=== PATIENT | male | born 1945 ===

== ENCOUNTER 2025-06-05 10:31 | Outpatient (AMB) | payer BC, SELFPAY ==
--- OUTSIDE RECORDS SUMMARY | 2025-04-15 06:30 | XMS_ITS ---
Author Organization [facility] Address [address] [place] [address] Care Team Providers Care Sales Service Executive Name Role Phone Ericleandra Shaista Primary Care Provider Monique Swift Unavailable [phone] Allergies Allergen (clinical drug ingredient) Drug/Non Drug Allergy documented on EMR Reaction Allergy Type Onset Date Status seasonal allergies congestion, runny nose Drug Allergy Active Medications Medication SIG (Take, Route, Frequency, Duration) Notes Start Date End Date Status Fenofibrate 160 MG 1 tablet with a meal Orally Once a day 06/10/2016 Active Fish Oil Active Lisinopril 40 MG 1 tablet Orally Once a day 06/10/2016 Active Lovastatin 40 MG 1 tablet with a meal Orally Once a day 06/10/2016 Active Magnesium Oxide Acti ve CoQ10 Active D-Mannose Active amLODIPine Besylate 5 MG 1 tablet Orally Once a day Active Aspirin Adult Low Dose 81 MG 1 tablet Orally Once a day 06/10/2016 Active Azelastine HCl Activ e Claritin 10 MG 1 tablet Orally Once a day Not-Taking Extra Depth Orthopedic Shoes (1 Pair) with Customized Heat Molded Multidensity Innersoles (3 Pair) as directed Dx: NIDDM (E11.9), Hammertoe Foot Deformity (M20.41,M20.42), Preulcerative Skin Lesion(s) (L85.1) 06/10/2016 Not-Taking Prevacid Not-Taking Famotidine Not-Takin g Vitamin C Not-Taking Vitamin B50 Complex Active Triamcinolone & Emollient Active Vitamin D Active Citrucel Not-Taking Clobetasol & Clobetasol Emul Not-Taking PreserVision AREDS A ctive PriLOSEC Active Tamsulosin HCl Activ e Metoprolol Succinate Active Mucinex Active metFORMIN HCl 500 MG 1 tablet with meals Orally Twice a day 06/10/2016 Active Social History Tobacco Use: Social History Observation Description Date Details (start date - stop date) Never Smoker NA - NA Tobacco use other than smoking: Question Answer Notes Are you an other tobacco user? No Tobacco Control (Standard) Question Answer Notes Tobacco use: Nonsmoker Additional Findings: Tobacco non-user Current no nsmoker AUDIT-C (Standard) Question Answer Notes Did you have a drink contain ing alcohol in the past year? Yes How often did you have a dri nk containing alcohol in the past year? Declined to specify (0 point) How many drinks did you have on a typical day when you were drinking in the past year? Declined to specify (0 point) How often did you have six o r more drinks on one occasion in the past year? Declined to specify (0 point) Points 0 Interpretation Negative Encounters Encounter Location Date Provider Diagnosis [address] [address] 04/15/2025 Monique Moran Plan Of Treatment No Information Progress Notes * Buzz BAILON EDOB:[birth year] (80 yo M)Acc No.[id number]:04/15/2025 Progress Notes Patient: Buzz OLIVER Provider: Leandra Moran DPM :1945 A ge:79 Y S ex:Male Date:04/15/2025 Address:[address] [place] [id number] Pcp:Shaista Olivarez Subjective: * Chief Complaints: * * ROS: G eneral/Constitutional: Nausea d enies. V omiting d enies. H blanca Thirst d enies. L oss appetite d enies. C hills d enies. F atigue d enies.?Fever d enies. N ight Sweats d enies. U nexplained weight loss d enies. U nexplained weight gain d enies. H EENTM: Dentures a dmits. D izziness d enies. G lasses/contacts a dmits. R etinopathy d enies. B lurred/double vision d enies. T MJ?denies. D ischarge/drainage d enies. I mplants d enies. S ore throat d enies. D ental implants d enies. H veronica of hearing a dmits. D ifficulty chewing/swallowing/speaking d enies. N ose bleeds d enies. S ore mouth d enies. ? R espiratory: On Oxygen d enies. P neumonia/pleurisy d enies.?Bronchitis a dmits. E mphysema d enies. C oughing d enies. C ough blood?denies. S hortness of breath d enies. W heezing d enies. C ardiovascular: Pacemaker d enies. M PRODUCTION ENGINEER TRACK d enies. W PW d enies. C HF d enies. H eart attack d enies. S eptal defect d enies. R apid beat d enies. C hest pain d enies. A trial Fib. d enies. M urmur/Palpitations d enies. G astrointestinal: Hemorrhoids a dmits. S tomach/Abdominal pain a dmits. D ark blood stool d enies. I rritable bowel a dmits. C onstipation d enies. D iarrhea d enies. H ematology: Swelling d enies. C lots d enies. V aricose Veins d enies. B ruising d enies. B leeding problem d enies. G enitourinary: Blood urine d enies. F requent/Painfu/urination/bladder control d enies. K idney stones a dmits. I nfection (UTI) a dmits. N ephropathy d enies. s ex trans dis (STD) d enies. P rostate a dmits. M usculoskeletal: Hammertoes d enies. B unions d enies. B ack Pain a dmits. M uscle Cramps/ Resting d enies. M uscle cramps / walking d enies.?Generalized aches and pains d enies. W eakness d enies. I nteg.: [place] d enies. S cars d enies. C orns/calluses?denies. I ngrown nails a dmits. P ainful nails a dmits. O pen Sores d enies. R ashes d enies. N eurologic: Difficulty sleeping a dmits. B rain disorder d enies. N umbness d enies. B alance trouble a dmits. C onfusion d enies. F ainting/blackouts d enies. T ingling d enies. T remors d enies. * Medical History: A sthma, Chicken pox, Diabetes mellitus, Diverticulosis, High blood pressure, Measles, Mumps, Cholesterol, Arthritis, Back,Hip,and Knee pain, Cataracts, Covid-19, Macular degeneration, Numbness, Psoriasis/eczema, Sinusitis. * Surgical History: t onsillectomy , deviated septum repair 2001, colonectomy 02/22/2014, cataract surgery , Thyroid Surgery 10/13/2017. * Family History: M other: , diagnosed with Unspecified essential hypertension. F ather: , stroke, heart attack, diagnosed with Diabetic - NIDDM. D aughter(s): alive. S on(s): alive. Spouse: alive. S ister: stroke. 3 son(s) , 2 daughter(s) . . Pt is unsure of complete family HX. * Social History: T obacco Use: T obacco use other than smoking A re you an other tobacco user? N o Tobacco Control (Standard) T obacco use: N onsmoker A dditional Findings: Tobacco non-user C urrent nonsmoker D rugs/Alcohol: D rugs H ave you used drugs other than those for medical reasons in the past 12 months? N o M iscellaneous: C affeine: yes, 1-2 cups per day. Children: yes, 5. Exercise: yes, bike riding. Marital status: . Occupation: retired. D rug/Alcohol: A FINA-C (Standard) D id you have a drink containing alcohol in the past year? Y es H ow often did you have a drink containing alcohol in the past year? D eclined to specify (0 point) H ow many drinks did you have on a typical day when you were drinking in the past year? D eclined to specify (0 point) H ow often did you have six or more drinks on one occasion in the past year? D eclined to specify (0 point) P oints 0 I nterpretation N egative * Medications: T aking amLODIPine Besylate 5 MG Tablet 1 tablet Orally Once a day , Taking Aspirin Adult Low Dose 81 MG Tablet Delayed Release 1 tablet Orally Once a day , Taking Azelastine HCl , Taking CoQ10 , Taking D-Mannose , Taking Fenofibrate 160 MG Tablet 1 tablet with a meal Orally Once a day , Taking Fish Oil , Taking Lisinopril 40 MG Tablet 1 tablet Orally Once a day , Taking Lovastatin 40 MG Tablet 1 tablet with a meal Orally Once a day , Taking Magnesium Oxide , Taking metFORMIN HCl 500 MG Tablet 1 tablet with meals Orally Twice a day , Taking Metoprolol Succinate , Taking Mucinex , Taking PreserVision AREDS , Taking PriLOSEC , Taking Tamsulosin HCl , Taking Vitamin B50 Complex , Taking Triamcinolone & Emollient , Taking Vitamin D , Not-Taking/PRN Citrucel , Not-Taking/PRN Clobetasol & Clobetasol Emul , Not-Taking/PRN Famotidine , Not-Taking/PRN Vitamin C , Not-Taking/PRN Claritin 10 MG Tablet 1 tablet Orally Once a day , Not-Taking/PRN Extra Depth Orthopedic Shoes (1 Pair) with Customized Heat Molded Multidensity Innersoles (3 Pair) as directed Dx: NIDDM (E11.9), Hammertoe Foot Deformity (M20.41,M20.42), Preulcerative Skin Lesion(s) (L85.1) , Not-Taking/PRN Prevacid * Allergies: S easonal Allergies: Congestion, Runny Nose. Objective: * Vitals: Assessment: Plan: * Treatment: * Images: * The named appointment provid er may or may not be the originator of this progress note, and it is not deemed complete until electronically signed by the appointment provider. Sign off status: Pending * Provider: Leandra Moran DPM Date: 0 04/15/2025 Generated for Abraham bullock/Willie/Jigar on: 06/05/2025 11:30 AM EDT
--- NOTE | 2025-06-05 10:44 | A.OFFVIS_ITS ---
Intake Visit Reasons: 6 weeks follow up Allergies No Known Allergies Allergy (Verified 06/04/25 19:11) Medication List - Last Reconciled 06/05/25 by Padma Dias MD amlodipine 5 mg PO DAILY aspirin 81 mg PO DAILY azelastine 2 sprays intranasal BID clobetasol 0.05% 1 appl topical BID coenzyme Q10 100 mg PO DAILY fenofibrate 160 mg PO DAILY furosemide 20 mg PO DAILY gabapentin 300 mg PO BEDTIME lisinopril 40 mg PO DAILY loratadine (Claritin) 10 mg PO DAILY lovastatin 40 mg PO DAILY magnesium oxide 400 mg PO BID PRN metformin 500 mg PO BID metoprolol succinate ER 50 mg PO DAILY omeprazole magnesium (Prilosec OTC) 20 mg PO DAILY tamsulosin 0.4 mg PO DAILY vitamin B complex 1 tab PO DAILY HPI Comments Details: This is a 79 yr man with Type 2 DM , with pain in his toes intermittently since Dec 2024. When it flares up , it affects his walking. Some days, he is in no pain. Recent NCV at [facility] in February 2025 has shown peripheral neuropathy. Report is not available. He also complains of more significant right thigh pain which is more constant? and affects his sleep . He has been able to asleep in the bed with a new mattress. He has been able to manage his pain without the gabapentin and only took 1 medicine because he was concerned about possible side effects. He has had mild tremors in his hands intermittently for 8 yrs. It does not cause any functional impairment. Tremor was better after coming off Escitalopram, which may have made it worse. He also has some absentmindedness and occasional trouble recalling names immediately. ? In the past he had occasional rare sharp pains and some dull ache at times in his legs and feet. Some numbness right thigh, only in morning. No local tenderness. Minor pain in the thigh muscles for a few seconds. A few rare instances of a few seconds of sharp pain in right big toe. Strength is fine. H/O diabetes mellitus, hypercholesterolemia, and hypertension with symptoms of meralgia paresthetica which have improved overall. He also has a mild distal sensory peripheral neuropathy from diabetes but is not symptomatic from it. Sugar is under control. 05/01/25 MRI LS spine shows diffuse degenerative disc disease in the lumbar spine with moderate to severe spinal stenosis at L2-3 and moderate stenosis at L3-4 and bilateral foraminal stenosis at L2-3. [facility] Medical History (Updated 06/05/25 @ 11:14 by Padma Dias MD) Macular degeneration GERD (gastroesophageal reflux disease) Hypercholesterolemia Hypertension Lumbar degenerative disc disease Meralgia paraesthetica Peripheral neuropathy Diabetes mellitus Surgical History (Updated 06/04/25 @ 19:08 by Isabel Giron MA) History of partial colectomy Social History (Updated 06/04/25 @ 19:09 by Isabel Giron MA) Patient Tobacco Use Status: Never used Tobacco Review of Systems Const Details: Sleep:? Difficulty getting to sleepdenies.? Difficulty maintaining sleepadmits.? Urge to move legsdenies.? Teeth grindingdenies.? Shouting or Kicking during sleepad mits.? Abnormal behavior during sleepdenies.? Excessive sleepdenies.? Snoring denies.? Daytime sleepinessdenies. ???General/Constitutional:? Change in appetitedenies.? Chillsdenies.? Fatiguedenies.? Feverdenies.? Weight gaindenies.? Weight lossdenies. ???Ophthalmologic:? Blurred visionadmits.? Diminished visual acuitydenies. ???ENT:? Stuffinessdenies.? Decreased hearingadmits.? Dry mouthdenies.? Ear paindenies.? Nosebleeddenies.? Ringing in the earsadmits.? Sinus paindenies.? Sore throat denies.? Swollen glandsdenies. ???Endocrine:? Cold intolerancedenies.? Excessive thirstdenies.? Frequent urinationdenies.? Heat intolerancedenies. ???Respiratory:? Shortness of breathdenies.? Chest paindenies.? Coughdenies. ???Breast:? Breast lumpdenies.? Nipple dischargedenies. ???Cardiovascular:? Chest pain at restdenies.? Chest pain with exertiondenies.? Claudicationdenies .? Dizzinessdenies.? Fluid accumulation in the legsdenies.? Irregular heartbeat denies.? Palpitationsdenies. ???Gastrointestinal:? Abdominal paindenies.? Constipationadmits.? Diarrheadenies.? Difficulty swallowingdenies.? Heartburndenies.? Nauseaadmits.? Rectal bleedingdenies. ???Hematology:? Easy bruisingdenies.? Prolonged bleedingdenies. ???Genitourinary:? Frequent urinationadmits.? Urgencydenies.? Incontinencedenies.? Erectile Dysfunctiondenies. ???Musculoskeletal:? Neck paindenies.? Back painadmits.? Muscle achesdenies.? Painful jointsdenies.? Sciaticadenies.? Weaknessdenies. ???Podiatric:? Difficulty walkingdenies.? Foot numbnessdenies. ???Neurologic:? Difficulty swallowingdenies.? Balance difficultydenies.? Coordinationnormal.? Difficulty speakingdenies.? Dizzinessdenies.? Faintingdenies.? Gait abnormality denies.? Headachedenies.? Loss of strengthdenies.? Loss of use of extremity denies.? Low back paindenies.? Memory lossadmits.? Seizuresdenies.? Ticsdenies.? Tingling/Numbnessadmits.? Transient loss of visiondenies.? Tremordenies. ???Psychiatric:? Anxietyadmits.? Auditory/visual hallucinationsdenies.? Delusionsdenies.? Depressed moodadmits.? Stressorsadmits.? Substance abusedenies.? Suicidal thoughtsdenies. Physical Exam Neuro Other: Mini Mental Status Exam: Level of Consciousness:??Alert.?Orientation:??Knows correct year, month, date, day and season,?Knows correct city, county and state. Knows correct location and floor.?Registration:??Able to register 3 objects.?Attention:??Serial 7's performed accurately.?Recall:??Able to recall 3 out of 3 objects.?Language:??Normal spontaneous speech, fluency, repetition,naming, comprehension, reading and writing.?Total Score:??30/30.? Neurological: Abnormal neurological findings:??Minimal left hand and finger tremor at rest. Absent ankle reflexes. Mild blunting of pin prick sensation in the feet distal to mid tarsal level.?.?Mental Status:??alert and oriented X 3,?Normal attention, orientation, memory and affect.?Cranial Nerves:??Pupils are equal, round and reactive to light. Fundoscopy shows normal disc bilaterally. External occular muscles are intact. Visual elizalde are full, no ptosis. Face is symmetrical, no facial weakness or droop. Facial sensations are normal. Tongue protrudes in midline. Palate elevates symmetrically. Shoulder shrugging is normal..?Motor Examination:??Normal muscle tone, bulk and strength,?No atrophy or fasciculations,?No drift of the extended upper extremities,?Deep tendon reflexes are 1+?,?Plantars are flexor?.?Straight Leg Raising:??90 degrees.?Sensory Exam:??Normal light touch, temperature, pinprick, vibration and joint-position sensations?,?Rhomberg sign is absent.?Coordination:??no ataxia,?no titubation,?[id number], jwee-rygb-dely test and rapid alternating movements were normal.?Gait Exam:??Within normal limits.?Cerebellar Signs:??[id number]-[id number] and ywli-qy-epxh is normal,?no dysdiadochokinesia?.?Extrapyramidal System:??No tremor, rigidity with normal facial expressions,?No bradykinesia, no bradyphrenia. Normal arm swing and posture. No propulsion or retropulsion.?Speech:??Normal,?no dysphasia or dysarthria..? General Examination: GENERAL APPEARANCE:??normal,?in no acute distress.?HEART:??S1, S2 normal,?no murmurs.?LUNGS:??clear anteriorly and posteriorly.?MUSCULOSKELETAL:??normal.?EXTREMITIES:??no edema.?PSYCH:??alert, oriented,?cognitive function intact,?cooperative with exam.? 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 Will stay off Gabapentin for now. B complex. Does not need any meds for his tremor yet. No surgical intervention unless pain gets a lot worse. Coding Level of Care Code Est Pt Level 4 (36930) Diagnoses Peripheral neuropathy G62.9 Meralgia paraesthetica G57.10 Spinal stenosis of lumbar region at multiple levels M48.061 Tremor R25.1
--- OUTSIDE RECORDS SUMMARY | 2025-06-05 11:30 | XMS_ITS | Patient Health Record ---
Author Organization [employer] [facility] Address [address] [place] [address] Care Team Providers Care Sourcing Assistant Name Role Phone DREW BARRETT Primary Care Provider [phone] HarlangenAlli bennett Unavailable [phone] Allergies No Known Allergies Results Component Value Reference Range Notes [id number] Reviewed date:04/06/2025 12:10:49 PM Interpretation: Performing Lab:[facility], [address] [place] [address], Phone - [phone], Director - Jodry Notes/Report: TSH 1.840 0.450-4.500 uIU/mL Hemoglobin [id number] Reviewed date:04/06/2025 12:12:45 PM Interpretation: Performing Lab:[facility], [address] [place] [address], Phone - [phone], Director - MDStephaniedry Notes/Report: Hemoglobin A1c 5.3 4.8-5.6 % . Prediabetes: 5.7 - 6.4 Diabetes: >6.4 Glycemic control for adults with diabetes: <7.0 Albumin/Creatinine Ratio,Uri [id number] Reviewed date:04/06/2025 12:12:58 PM Interpretation: Performing Lab:[facility], [address] [place] [address], Phone - [phone], Director - MDJodry Notes/Report: Creatinine, Urine 31.9 Not Estab. mg/dL Albumin, Urine 46.1 Not Estab. ug/mL Alb/Creat Ratio 145 0-29 mg/g creat Normal: 0 - 29 Moderately increased: 30 - 300 Severely increased: >300 Lipid [id number] Reviewed date:04/06/2025 12:13:07 PM Interpretation: Performing Lab:[facility], [address] [facility], Phone - [phone], Director - MDJodry Notes/Report: Cholesterol, Total 118 100-199 mg/dL Triglycerides 92 0-149 mg/dL HDL Cholesterol 46 >39 mg/dL VLDL Cholesterol Finesse 18 5-40 mg/dL LDL Chol Calc (NIH) 54 0-99 mg/dL Comp. Metabolic Panel (14)-3 Reviewed date:04/06/2025 12:13:13 PM Interpretation: Performing Lab:[facility], [address] [facility], Phone - [phone], Director - MDTabathay Notes/Report: Glucose 86 70-99 mg/dL BUN 22 8-27 mg/dL Creatinine 1.35 0.76-1.27 mg/dL eGFR 53 >59 mL/min/1.73 BUN/Creatinine Ratio 16 10-24 Sodium 141 134-144 mmol/L Potassium 4.3 3.5-5.2 mmol/L Chloride 101 96-106 mmol/L Carbon Dioxide, Total 23 20-29 mmol/L Calcium 9.7 8.6-10.2 mg/dL Protein, Total 7.1 6.0-8.5 g/dL Albumin 4.4 3.8-4.8 g/dL Globulin, Total 2.7 1.5-4.5 g/dL Bilirubin, Total 0.6 0.0-1.2 mg/dL Alkaline Phosphatase 75 44-121 IU/L AST (SGOT) 29 0-40 IU/L ALT (SGPT) 16 0-44 IU/L Comp. Metabolic Panel (14)- Reviewed date:03/15/2025 03:27:10 PM Interpretation: Performing Lab:[facility], [address] [facility], Phone - [phone], Director - MDJodry Notes/Report: Clinical Information:SRC: Glucose 87 70-99 mg/dL BUN 20 8-27 mg/dL Creatinine 1.10 0.76-1.27 mg/dL eGFR 68 >59 mL/min/1.73 BUN/Creatinine Ratio 18 10-24 Sodium 140 134-144 mmol/L Potassium 4.3 3.5-5.2 mmol/L Chloride 102 96-106 mmol/L Carbon Dioxide, Total 24 20-29 mmol/L Calcium 9.4 8.6-10.2 mg/dL Protein, Total 6.7 6.0-8.5 g/dL Albumin 4.3 3.8-4.8 g/dL Globulin, Total 2.4 1.5-4.5 g/dL Bilirubin, Total 0.6 0.0-1.2 mg/dL Alkaline Phosphatase 64 44-121 IU/L AST (SGOT) 23 0-40 IU/L ALT (SGPT) 14 0-44 IU/L Hemoglobin [id number] Reviewed date:03/15/2025 03:27:26 PM Interpretation: Performing Lab:[facility], [address] [place] [address], Phone - [phone], Director - MDStephaniedry Notes/Report: Clinical Information:SRC: Hemoglobin A1c 5.4 4.8-5.6 % . Prediabetes: 5.7 - 6.4 Diabetes: >6.4 Glycemic control for adults with diabetes: <7.0 Albumin/Creatinine Ratio,Uri [id number] Reviewed date:03/15/2025 03:26:26 PM Interpretation: Performing Lab:[facility], [address] [place] [address], Phone - [phone], Director - Isi Notes/Report: Clinical Information:SRC: Creatinine, Urine 65.5 Not Estab. mg/dL Albumin, Urine 41.7 Not Estab. ug/mL Alb/Creat Ratio 64 0-29 mg/g creat Normal: 0 - 29 Moderately increased: 30 - 300 Severely increased: >300 Lipid Panel-[id number] Reviewed date:03/15/2025 03:27:49 PM Interpretation: Performing Lab:[facility], [address] [place] [address], Phone - [phone], Director - MDTabathay Notes/Report: Clinical Information:SRC: Cholesterol, Total 118 100-199 mg/dL Triglycerides 101 0-149 mg/dL HDL Cholesterol 43 >39 mg/dL VLDL Cholesterol Finesse 19 5-40 mg/dL LDL Chol Calc (NIH) 56 0-99 mg/dL Reason For Referral Reason please evaluate and treat- DR. Saad [facility] Pod[facility] Please evaluate and treat Diagnosis 1 Tinea unguium (B35.1 ) Referral Organization [facility] Referring Provider First Name Alli Referring Provider Last Name Viji Referred Provider Specialty Podiatry General Notes Please call the eliceo ent to schedule the 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 Referral Priority Urgent Reason neuropathy please evaluate and treat Diagnosis 1 Neuropathy (G62.9) Referral Organization [facility] Referring Provider First Name Isissmita Referring Provider Last Name Juan M Referred Provider Specialty Neurology General Notes Referral was faxed [facility]. Please contact patient for scheduling. , Claudia Yepezida 04/18/2025 04:56:13 PM > Referral Priority Routine Medications Medication SIG (Take, Route, Frequency, Duration) Notes Start Date End Date Status Tamsulosin HCl 0.4 MG 1 capsule Orally Once a day Active Triamcinolone Acetonide 0.025 % 1 application Externally Once a day as needed Active Fenofibrate 160 MG TAKE 1 TABLET DAILY; Duration: 90 Active Lovastatin 40 MG TAKE 1 TABLET DAILY WITH THE EVENING MEAL; Duration: 90 Active Azelastine HCl 0.1 % 2 puffs (1 spray in each nostril) Nasally Twice a day; Duration: 90 days Active Lisinopril 40 MG TAKE 1 TABLET DAILY; Duration: 90 Active D-Mannose 3 daily Active FreeStyle Lite w/Device as directed once a day; Duration: 30 days 03/09/2023 Not-Taking Clobetasol Propionate 0.05 % 1 application Externally Twice a day Active metFORMIN HCl 500 MG TAKE 1 TABLET TWICE A DAY WITH MEALS; Duration: 90 Active Metamucil 1 tsp daily Active FreeStyle Lancets - 1 lancet once a day; Duration: 90 days 03/09/2023 Not-Taking Colace 100 MG 1 capsule as needed Orally Once a day Active FreeStyle Lite Test - 1 strip In Vitro once a day; Duration: 90 days 03/09/2023 Not-Taking Magnesium Oxide 400 MG 2 tablets Orally daily Active Flonase 1 spray each nostril daily Active Furosemide 20 MG 1 tablet Orally Once a day; Duration: 30 days 03/20/2025 Active Lactulose 10 GM/15ML 15 mL as needed Orally Once a day; Duration: 30 days 11/17/2023 Not-Taking Mucinex 600 MG 1 tablet as needed Orally every 12 hrs prn Active Lactulose 20 GM 1 packet as needed Orally Once a day; Duration: 30 days 11/15/2023 Not-Taking Linzess 145 MCG 1 capsule at least 30 minutes before the first meal of the day on an empty stomach Orally Once a day; Duration: 30 days 09/09/2023 Not-Taking CoQ10 200 MG 1 capsule with a meal Orally Once a day Active Vitamin B50 Complex - as directed Orally 1 tablet daily Active Lactulose 20 GM 1 packet as needed Orally Once a day; Duration: 30 days 09/12/2023 Not-Taking Vitamin D3 50 MCG (2000 UT) 1 capsule Orally Once a day Active PriLOSEC OTC 20 MG 1 tablet 30 minutes before morning meal Orally Once a day as needed Active Aspirin 81 MG 1 tablet Orally Once a day Active Fish Oil 3,000 mg twice a day Active amLODIPine Besylate 5 MG 1 tablet Orally Once a day Active PreserVision AREDS 2 - as directed Orally 1 capsule twice a day Active Metoprolol Succinate ER 50 MG 1 tablet Orally Once a day Active Immunizations Vaccine Route Administration Date Status Comme nts COVID Unknown 01/01/2021 Administered Pfizer COVID Unknown 01/26/2021 Administered Pfizer COVID Unknown 09/01/2021 Administered Pfizer-boost er COVID-19 Pfizer Unknown 09/01/2022 Administered Fluzone High Dose 97044 IM Intramuscular 09/12/2024 Administered Influenza, high dose seasonal Unknown 09/01/2021 Administered Social History Tobacco Use: Social History Observation Description Date Details (start date - stop date) Never Smoker NA - NA Tobacco Use/Smoking Question Answer Notes Are you a nonsmoker Alcohol Screen (Audit-C) Question Answer Notes Did you have a drink contain ing alcohol in the past year? Yes How often did you have a dri nk containing alcohol in the past year? Monthly or less (1 point) How many drinks did you have on a typical day when you were drinking in the past year? 1 or 2 drinks (0 point) How often did you have 6 or more drinks on one occasion in the past year? 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.21) Active confirmed Problem Disorder due to type 2 diabetes mellitus (998144962) Type 2 diabetes mellitus with unspecified complications (E11.8) Active confirmed Problem Obesity due to excess calories (747612796) Other obesity due to excess calories (E66.09) Active confirmed Problem Mixed hyperlipidemia (548956692) Mixed hyperlipidemia (E78.2) Active confirmed Problem Essential tremor (729629697) Essential tremor (G25.0) Active confirmed Problem Intermittent claudication of bilateral lower limbs co-occurrent and due to atherosclerosis (92522379645535757 ) Atherosclerosis of [place] arteries of extremities with intermittent claudication, bilateral legs (I70.213) Active confirmed Problem Peripheral venous insufficiency (82810079) Venous insufficiency (chronic) (peripheral) (I87.2) Active confirmed Problem Seasonal allergic rhinitis (609390243) Other seasonal allergic rhinitis (J30.2) Active confirmed Problem Gastro-esophageal reflux disease without esophagitis (871153568) Gastro-esophageal reflux disease without esophagitis (K21.9) Active confirmed Problem Constipation (54968754) Constipation, unspecified (K59.00) Active confirmed Problem Essential hypertension (42680114) Essential (primary) hypertension (I10) Active confirmed Problem Mononeuropathy of lower limb (089911326) Unspecified mononeuropathy of bilateral lower limbs (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) Active confirmed Problem Lower urinary tract symptoms due to benign prostatic hypertrophy (24782825972865) Benign prostatic hyperplasia with lower urinary tract symptoms (N40.1) Active confirmed Problem Neuropathy (376039245) Neuropathy (G62.9) Active confirmed Vital Signs Heart Rate 51 /min 03/20/2025 Temperature 97.7 degrees Fahrenheit 03/20/2025 Oximetry 99 % 03/20/2025 Blood pressure diastolic 78 mm Hg 03/20/2025 Height 68 in 03/20/2025 Blood pressure systolic 126 mm Hg 03/20/2025 Weight 215 lbs 03/20/2025 BMI 32.69 kg/m2 03/20/2025 Encounters Encounter Location Date Provider Diagnosis [facility] [address] [address] 09/12/2024 [facility] Encounter for genera l adult medical examination without abnormal findings Z00.00 ; Atherosclerosis of [place] arteries of extremities with intermittent claudication, bilateral legs I70.213 ; Diabetes mellitus due to underlying condition with diabetic nephropathy E08.21 ; Essential (primary) hypertension I10 ; Mixed hyperlipidemia E78.2 ; Benign prostatic hyperplasia with lower urinary tract symptoms N40.1 and Encounter for immunization Z23 [address] [place] [address] 02/05/2025 Ghadeer Mazloum Tinea unguium B35.1 ; Unspecified mononeuropathy of bilateral lower limbs G57.93 and Type 2 diabetes mellitus with unspecified complications E11.[address] [place] [address] 03/20/2025 RUSSELL GU Essential (primary) hypertension I10 ; Diabetes mellitus due to underlying condition with diabetic nephropathy E08.21 ; Mixed hyperlipidemia E78.2 ; Venous insufficiency (chronic) (peripheral) I87.2 ; Other obesity due to excess calories E66.09 and Dietary counseling and surveillance Z71.[address] [place] [address] 06/14/[address] [place] [address] 07/16/[address] [place] [address] 07/19/[address] [place] [address] 07/31/[address] [place] [address] 02/08/[address] [place] [address] 02/14/2025 Ghadeer Mazloum Unspecified mononeuropathy of bilateral lower limbs G57.[address] [place] [address] 06/03/2025 RUSSELL GUL [facility] [address] [facility] [address] [facility] [place] [place] [address] 06/21/2024 R[facility]SELL GUL [facility] [address] [facility] [address] [facility] [place] [address] 06/21/2024 RUSSELL L [facility] [address] [facility] [address] [facility] [place] [address] 06/21/2024 [facility] [address] [facility] [address] [place] [address] 06/21/2024 RUSSELL GUL [facility] [address] [facility] [address] [facility] [place] [place] [address] 07/20/2024 [facility] [address] [facility] [address] [facility] [place] [address] 12/24/2024 [facility] [address] [facility] [address] [facility] [place] [address] 02/12/2025 [facility] [address] [facility] [address] [facility] [place] [place] [address] 02/12/2025 [facility] [address] [facility] [address] [facility] [place] [address] 02/14/2025 [facility] [address] [facility] [address] [facility] [place] [address] 03/04/2025 [facility] [address] [facility] [address] [facility] [place] [address] 03/20/2025 [facility] GUL [facility] [address] [facility] [address] [facility] [place] [address] 03/20/2025 [facility] [address] [facility] [address] [facility] [place] [address] 04/02/2025 [facility] [address] [facility] [address] [facility] [place] [address] 04/09/2025 [facility] [address] [facility] [address] [place] [address] 04/09/2025 R[facility] [address] [facility] [address] [place] [address] 04/11/2025 Alli Hallman [facility] [address] [facility] [address] [place] [address] 04/15/2025 Alli Hallman Assessments Encounter Date Diagnosis (ICD Code) Assessment Notes Treatment Notes Treatment Clinical Notes Section Notes 02/05/2025 Unspecified mononeuropathy of bilateral lower limbs (ICD-10 - G57.93) Mr. Decker is a 79 year old gentleman with DM type II, hypertension, hyperlipidemia, seasonal allergies and BPH here for bilateral foot pain. Plan as follows: Foot pain BL: - States that it is chronic, he admits to history of neuropathy though this pain is different. Diabetic foot exam is unremarkable, no ulcers/lesions, pedal pulse is intact BL, good circulation, toes are warm to touch. However, in his past medical history he has atherosclerosis with intermittent claudication, he is unaware of the diagnosis and he takes ASA 81mg daily. I will refer patient to Vascular for NATHALY testing, will also get EMG study to r/o neuropathy. Tinea Unguium: - Referred patient to labor contractor. T2DM: - Recent a1c of 5.3 it has improved. Continue on the same regimen. I have rendered the services for this patient under direct supervision of Dr. Barrett, who did not see the patient but was available upon request 02/14/2025 Unspecified mononeuropathy of bilateral lower limbs (ICD-10 - G57.93) 03/20/2025 Diabetes mellitus due to underlying condition with diabetic nephropathy (ICD-10 - E08.21) Buzz is 79 years old gentleman with DM type II with diabetic nephropathy, hypertension, hyperlipidemia, venous insufficiency, obesity, BPH is here today for follow-up. Plan is as follows DM type II with nephropathy. His last A1c was 5.4 which is within reasonable limits. Continue on metformin 500 mg 1 tablet twice a day. He is on lisinopril and lovastatin. He has seen [facility] erp developer in the past 1 year. Foot care discussed with the patient. Hypertension/hyper lipidemia. The pressure well controlled on lisinopril 40 mg 1 tablet daily, , metoprolol ER 50 mg 1 tablet daily and amlodipine 5 mg daily. Continue lovastatin 40 mg and he is also on fenofibrate 160 mg 1 tablet daily. Venous insufficiency. he has ultrasound done of bilateral lower extremity which was positive for venous insufficiency. Avoid salt. He cannot use compression stockings because of the rash. Started on Lasix 20 mg 1 tablet daily for 7 days and if there is no improvement he can continue for another 7 days and check basic panel and after that he can take Lasix 20 mg 2 times a week. BPH. Continue Flomax 0.4 mg daily Acid reflux. Continue Prilosec 20 mg 1 tablet daily Bilateral rash on the feet. Currently on clobetasol 0.05% cream and he follows up with dermatology. obesity. Dietary restrictions discussed and advised to lose on average 6 pounds a month. Encouraged physical activity Screening blood work before next appointment. 02/05/2025 Tinea unguium (ICD-10 - B35.1) Mr. Decker is a 79 year old gentleman with DM type II, hypertension, hyperlipidemia, seasonal allergies and BPH here for bilateral foot pain. Plan as follows: Foot pain BL: - States that it is chronic, he admits to history of neuropathy though this pain is different. Diabetic foot exam is unremarkable, no ulcers/lesions, pedal pulse is intact BL, good circulation, toes are warm to touch. However, in his past medical history he has atherosclerosis with intermittent claudication, he is unaware of the diagnosis and he takes ASA 81mg daily. I will refer patient to Vascular for NATHALY testing, will also get EMG study to r/o neuropathy. Tinea Unguium: - Referred patient to labor contractor. T2DM: - Recent a1c of 5.3 it has improved. Continue on the same regimen. I have rendered the services for this patient under direct supervision of Dr. Barrett, who did not see the patient but was available upon request 03/20/2025 Essential (primary) hypertension (ICD-10 - I10) Buzz is 79 years old gentleman with DM type II with diabetic nephropathy, hypertension, hyperlipidemia, venous insufficiency, obesity, BPH is here today for follow-up. Plan is as follows DM type II with nephropathy. His last A1c was 5.4 which is within reasonable limits. Continue on metformin 500 mg 1 tablet twice a day. He is on lisinopril and lovastatin. He has seen [facility] erp developer in the past 1 year. Foot care discussed with the patient. Hypertension/hyper lipidemia. The pressure well controlled on lisinopril 40 mg 1 tablet daily, , metoprolol ER 50 mg 1 tablet daily and amlodipine 5 mg daily. Continue lovastatin 40 mg and he is also on fenofibrate 160 mg 1 tablet daily. Venous insufficiency. he has ultrasound done of bilateral lower extremity which was positive for venous insufficiency. Avoid salt. He cannot use compression stockings because of the rash. Started on Lasix 20 mg 1 tablet daily for 7 days and if there is no improvement he can continue for another 7 days and check basic panel and after that he can take Lasix 20 mg 2 times a week. BPH. Continue Flomax 0.4 mg daily Acid reflux. Continue Prilosec 20 mg 1 tablet daily Bilateral rash on the feet. Currently on clobetasol 0.05% cream and he follows up with dermatology. obesity. Dietary restrictions discussed and advised to lose on average 6 pounds a month. Encouraged physical activity Screening blood work before next appointment. 09/12/2024 Atherosclerosis of [place] arteries of extremities with intermittent claudication, bilateral legs (ICD-10 - I70.213) Mr. Decker is a 79 year old gentleman with DM type II, hypertension, hyperlipidemia, seasonal allergies and BPH here for medicare annual wellness visit. Plan is as follows: Coronary artery disease. He follows up with cardiology and Dr. Rivas and he is on the right medications and is asymptomatic. His lipid panel is within recommended range and he is on statins. Type II diabetes mellitus with nephropathy. He has proteinuria and he is on lisinopril 40 mg daily with GFR of 63. He is on right medications. Last A1c is 5.4 He sees his [facility] erp developer. Foot care discussed. check A1c. EKG is normal sinus rhythm at 63 bpm with no acute ST or T wave changes, no bundle branch block, normal intervals. Hypertension. Blood pressure well controlled on current regimen. Advised appropriate hydration. Advised dietary restrictions and regimental exercise. Goal is to lose 5-6 lbs a month. Hyperlipidemia. Last lipid panel within normal limits. Continue current regimen. BPH. He uses straight cath. Stable on Tamsulosin 0.[address] Mejia. Constipation. He takes MiraLAX 1 tablespoon, milk of magnesia 1 tablespoon and Colace 100 mg. He can also continue with psyllium husk and Linzess. Appropriate hydration recommended. He can add natural fiber on her diet, like cucumber. Eye screening. He sees his [facility] erp developer regularly. Dental screening. He sees dentist regularly. Colon cancer screening. He had his colonoscopy done in 2021 and is no longer needed considering his age. Immunizations. He is up-to-date on his COVID vaccinations. Flu shot administered in the office today. His healthcare proxy is his Melody and he is full code Screening blood work before next appointment. General health concerns discussed with patient. Scribe services used to formulate this note under HIPAA compliance and under [place] law mandated for scribe services. Patient aware of service. Verbal consent and written consent taken from the patient. Patient understands and verbalizes understanding of the scribes services and all questions answered regarding scribes services. Patient agrees to use of scribes services. 09/12/2024 Encounter for general adult medical examination without abnormal findings (ICD-10 - Z00.00) Mr. Decker is a 79 year old gentleman with DM type II, hypertension, hyperlipidemia, seasonal allergies and BPH here for medicare annual wellness visit. Plan is as follows: Coronary artery disease. He follows up with cardiology and Dr. Rivas and he is on the right medications and is asymptomatic. His lipid panel is within recommended range and he is on statins. Type II diabetes mellitus with nephropathy. He has proteinuria and he is on lisinopril 40 mg daily with GFR of 63. He is on right medications. Last A1c is 5.4 He sees his [employer] erp developer. Foot care discussed. check A1c. EKG is normal sinus rhythm at 63 bpm with no acute ST or T wave changes, no bundle branch block, normal intervals. Hypertension. Blood pressure well controlled on current regimen. Advised appropriate hydration. Advised dietary restrictions and regimental exercise. Goal is to lose 5-6 lbs a month. Hyperlipidemia. Last lipid panel within normal limits. Continue current regimen. BPH. He uses straight cath. Stable on Tamsulosin 0.[address] Mejia. Constipation. He takes MiraLAX 1 tablespoon, milk of magnesia 1 tablespoon and Colace 100 mg. He can also continue with psyllium husk and Linzess. Appropriate hydration recommended. He can add natural fiber on her diet, like cucumber. Eye screening. He sees his oracle erp developer regularly. Dental screening. He sees dentist regularly. Colon cancer screening. He had his colonoscopy done in 2021 and is no longer needed considering his age. Immunizations. He is up-to-date on his COVID vaccinations. Flu shot administered in the office today. His healthcare proxy is his Melody and he is full code Screening blood work before next appointment. General health concerns discussed with patient. Scribe services used to formulate this note under HIPAA compliance and under [place] law mandated for scribe services. Patient aware of service. Verbal consent and written consent taken from the patient. Patient understands and verbalizes understanding of the scribes services and all questions answered regarding scribes services. Patient agrees to use of scribes services. 09/12/2024 Diabetes mellitus due to underlying condition with diabetic nephropathy (ICD-10 - E08.21) Mr. Decker is a 79 year old gentleman with DM type II, hypertension, hyperlipidemia, seasonal allergies and BPH here for medicare annual wellness visit. Plan is as follows: Coronary artery disease. He follows up with cardiology and Dr. Rivas and he is on the right medications and is asymptomatic. His lipid panel is within recommended range and he is on statins. Type II diabetes mellitus with nephropathy. He has proteinuria and he is on lisinopril 40 mg daily with GFR of 63. He is on right medications. Last A1c is 5.4 He sees his oracle erp developer. Foot care discussed. check A1c. EKG is normal sinus rhythm at [address]pm with no acute [address] or T wave changes, no bundle branch block, normal intervals. Hypertension. Blood pressure well controlled on current regimen. Advised appropriate hydration. Advised dietary restrictions and regimental exercise. Goal is to lose 5-6 lbs a month. Hyperlipidemia. Last lipid panel within normal limits. Continue current regimen. BPH. He uses straight cath. Stable on Tamsulosin 0.[address] Mejia. Constipation. He takes MiraLAX 1 tablespoon, milk of magnesia 1 tablespoon and Colace 100 mg. He can also continue with psyllium husk and Linzess. Appropriate hydration recommended. He can add natural fiber on her diet, like cucumber. Eye screening. He sees his oracle erp developer regularly. Dental screening. He sees dentist regularly. Colon cancer screening. He had his colonoscopy done in 2021 and is no longer needed considering his age. Immunizations. He is up-to-date on his COVID vaccinations. Flu shot administered in the office today. His healthcare proxy is his Melody and he is full code Screening blood work before next appointment. General health concerns discussed with patient. Scribe services used to formulate this note under HIPAA compliance and under [place] law mandated for scribe services. Patient aware of service. Verbal consent and written consent taken from the patient. Patient understands and verbalizes understanding of the scribes services and all questions answered regarding scribes services. Patient agrees to use of scribes services. 02/05/2025 Type 2 diabetes mellitus with unspecified complications (ICD-10 - E11.8) Mr. Decker is a 79 year old gentleman with DM type II, hypertension, hyperlipidemia, seasonal allergies and BPH here for bilateral foot pain. Plan as follows: Foot pain BL: - States that it is chronic, he admits to history of neuropathy though this pain is different. Diabetic foot exam is unremarkable, no ulcers/lesions, pedal pulse is intact BL, good circulation, toes are warm to touch. However, in his past medical history he has atherosclerosis with intermittent claudication, he is unaware of the diagnosis and he takes ASA 81mg daily. I will refer patient to Vascular for NATHALY testing, will also get EMG study to r/o neuropathy. Tinea Unguium: - Referred patient to labor contractor. T2DM: - Recent a1c of 5.3 it has improved. Continue on the same regimen. I have rendered the services for this patient under direct supervision of Dr. Barrett, who did not see the patient but was available upon request 03/20/2025 Mixed hyperlipidemia (ICD-10 - E78.2) Buzz is 79 years old gentleman with DM type II with diabetic nephropathy, hypertension, hyperlipidemia, venous insufficiency, obesity, BPH is here today for follow-up. Plan is as follows DM type II with nephropathy. His last A1c was 5.4 which is within reasonable limits. Continue on metformin 500 mg 1 tablet twice a day. He is on lisinopril and lovastatin. He has seen oracle erp developer in the past 1 year. Foot care discussed with the patient. Hypertension/hyper lipidemia. The pressure well controlled on lisinopril 40 mg 1 tablet daily, , metoprolol ER 50 mg 1 tablet daily and amlodipine 5 mg daily. Continue lovastatin 40 mg and he is also on fenofibrate 160 mg 1 tablet daily. Venous insufficiency. he has ultrasound done of bilateral lower extremity which was positive for venous insufficiency. Avoid salt. He cannot use compression stockings because of the rash. Started on Lasix 20 mg 1 tablet daily for 7 days and if there is no improvement he can continue for another 7 days and check basic panel and after that he can take Lasix 20 mg 2 times a week. BPH. Continue Flomax 0.4 mg daily Acid reflux. Continue Prilosec 20 mg 1 tablet daily Bilateral rash on the feet. Currently on clobetasol 0.05% cream and he follows up with dermatology. obesity. Dietary restrictions discussed and advised to lose on average 6 pounds a month. Encouraged physical activity Screening blood work before next appointment. 03/20/2025 Venous insufficiency (chronic) (peripheral) (ICD-10 - I87.2) Buzz is 79 years old gentleman with DM type II with diabetic nephropathy, hypertension, hyperlipidemia, venous insufficiency, obesity, BPH is here today for follow-up. Plan is as follows DM type II with nephropathy. His last A1c was 5.4 which is within reasonable limits. Continue on metformin 500 mg 1 tablet twice a day. He is on lisinopril and lovastatin. He has seen oracle erp developer in the past 1 year. Foot care discussed with the patient. Hypertension/hyper lipidemia. The pressure well controlled on lisinopril 40 mg 1 tablet daily, , metoprolol ER 50 mg 1 tablet daily and amlodipine 5 mg daily. Continue lovastatin 40 mg and he is also on fenofibrate 160 mg 1 tablet daily. Venous insufficiency. he has ultrasound done of bilateral lower extremity which was positive for venous insufficiency. Avoid salt. He cannot use compression stockings because of the rash. Started on Lasix 20 mg 1 tablet daily for 7 days and if there is no improvement he can continue for another 7 days and check basic panel and after that he can take Lasix 20 mg 2 times a week. BPH. Continue Flomax 0.4 mg daily Acid reflux. Continue Prilosec 20 mg 1 tablet daily Bilateral rash on the feet. Currently on clobetasol 0.05% cream and he follows up with dermatology. obesity. Dietary restrictions discussed and advised to lose on average 6 pounds a month. Encouraged physical activity Screening blood work before next appointment. 09/12/2024 Essential (primary) hypertension (ICD-10 - I10) Mr. Decker is a 79 year old gentleman with DM type II, hypertension, hyperlipidemia, seasonal allergies and BPH here for medicare annual wellness visit. Plan is as follows: Coronary artery disease. He follows up with cardiology and Dr. Rivas and he is on the right medications and is asymptomatic. His lipid panel is within recommended range and he is on statins. Type II diabetes mellitus with nephropathy. He has proteinuria and he is on lisinopril 40 mg daily with GFR of 63. He is on right medications. Last A1c is 5.4 He sees his oracle erp developer. Foot care discussed. check A1c. EKG is normal sinus rhythm at [address] bpm with no acute [address] or T wave changes, no bundle branch block, normal intervals. Hypertension. Blood pressure well controlled on current regimen. Advised appropriate hydration. Advised dietary restrictions and regimental exercise. Goal is to lose 5-6 lbs a month. Hyperlipidemia. Last lipid panel within normal limits. Continue current regimen. BPH. He uses straight cath. Stable on Tamsulosin 0.[address] Mejia. Constipation. He takes MiraLAX 1 tablespoon, milk of magnesia 1 tablespoon and Colace 100 mg. He can also continue with psyllium husk and Linzess. Appropriate hydration recommended. He can add natural fiber on her diet, like cucumber. Eye screening. He sees his oracle erp developer regularly. Dental screening. He sees dentist regularly. Colon cancer screening. He had his colonoscopy done in 2021 and is no longer needed considering his age. Immunizations. He is up-to-date on his COVID vaccinations. Flu shot administered in the office today. His healthcare proxy is his Melody and he is full code Screening blood work before next appointment. General health concerns discussed with patient. Scribe services used to formulate this note under HIPAA compliance and under [place] law mandated for scribe services. Patient aware of service. Verbal consent and written consent taken from the patient. Patient understands and verbalizes understanding of the scribes services and all questions answered regarding scribes services. Patient agrees to use of scribes services. 09/12/2024 Mixed hyperlipidemia (ICD-10 - E78.2) Mr. Decker is a 79 year old gentleman with DM type II, hypertension, hyperlipidemia, seasonal allergies and BPH here for medicare annual wellness visit. Plan is as follows: Coronary artery disease. He follows up with cardiology and Dr. Rivas and he is on the right medications and is asymptomatic. His lipid panel is within recommended range and he is on statins. Type II diabetes mellitus with nephropathy. He has proteinuria and he is on lisinopril 40 mg daily with GFR of 63. He is on right medications. Last A1c is 5.4 He sees his oracle erp developer. Foot care discussed. check A1c. EKG is normal sinus rhythm at [address]pm with no acute [address] or T wave changes, no bundle branch block, normal intervals. Hypertension. Blood pressure well controlled on current regimen. Advised appropriate hydration. Advised dietary restrictions and regimental exercise. Goal is to lose 5-6 lbs a month. Hyperlipidemia. Last lipid panel within normal limits. Continue current regimen. BPH. He uses straight cath. Stable on Tamsulosin 0.[address] Mejia. Constipation. He takes MiraLAX 1 tablespoon, milk of magnesia 1 tablespoon and Colace 100 mg. He can also continue with psyllium husk and Linzess. Appropriate hydration recommended. He can add natural fiber on her diet, like cucumber. Eye screening. He sees his oracle erp developer regularly. Dental screening. He sees dentist regularly. Colon cancer screening. He had his colonoscopy done in 2021 and is no longer needed considering his age. Immunizations. He is up-to-date on his COVID vaccinations. Flu shot administered in the office today. His healthcare proxy is his Melody and he is full code Screening blood work before next appointment. General health concerns discussed with patient. Scribe services used to formulate this note under HIPAA compliance and under [place] law mandated for scribe services. Patient aware of service. Verbal consent and written consent taken from the patient. Patient understands and verbalizes understanding of the scribes services and all questions answered regarding scribes services. Patient agrees to use of scribes services. 03/20/2025 Other obesity due to excess calories (ICD-10 - E66.09) Buzz is 79 years old gentleman with DM type II with diabetic nephropathy, hypertension, hyperlipidemia, venous insufficiency, obesity, BPH is here today for follow-up. Plan is as follows DM type II with nephropathy. His last A1c was 5.4 which is within reasonable limits. Continue on metformin 500 mg 1 tablet twice a day. He is on lisinopril and lovastatin. He has seen oracle erp developer in the past 1 year. Foot care discussed with the patient. Hypertension/hyper lipidemia. The pressure well controlled on lisinopril 40 mg 1 tablet daily, , metoprolol ER 50 mg 1 tablet daily and amlodipine 5 mg daily. Continue lovastatin 40 mg and he is also on fenofibrate 160 mg 1 tablet daily. Venous insufficiency. he has ultrasound done of bilateral lower extremity which was positive for venous insufficiency. Avoid salt. He cannot use compression stockings because of the rash. Started on Lasix 20 mg 1 tablet daily for 7 days and if there is no improvement he can continue for another 7 days and check basic panel and after that he can take Lasix 20 mg 2 times a week. BPH. Continue Flomax 0.4 mg daily Acid reflux. Continue Prilosec 20 mg 1 tablet daily Bilateral rash on the feet. Currently on clobetasol 0.05% cream and he follows up with dermatology. obesity. Dietary restrictions discussed and advised to lose on average 6 pounds a month. Encouraged physical activity Screening blood work before next appointment. 03/20/2025 Dietary counseling and surveillance (ICD-10 - Z71.3) Buzz is 79 years old gentleman with DM type II with diabetic nephropathy, hypertension, hyperlipidemia, venous insufficiency, obesity, BPH is here today for follow-up. Plan is as follows DM type II with nephropathy. His last A1c was 5.4 which is within reasonable limits. Continue on metformin 500 mg 1 tablet twice a day. He is on lisinopril and lovastatin. He has seen oracle erp developer in the past 1 year. Foot care discussed with the patient. Hypertension/hyper lipidemia. The pressure well controlled on lisinopril 40 mg 1 tablet daily, , metoprolol ER 50 mg 1 tablet daily and amlodipine 5 mg daily. Continue lovastatin 40 mg and he is also on fenofibrate 160 mg 1 tablet daily. Venous insufficiency. he has ultrasound done of bilateral lower extremity which was positive for venous insufficiency. Avoid salt. He cannot use compression stockings because of the rash. Started on Lasix 20 mg 1 tablet daily for 7 days and if there is no improvement he can continue for another 7 days and check basic panel and after that he can take Lasix 20 mg 2 times a week. BPH. Continue Flomax 0.4 mg daily Acid reflux. Continue Prilosec 20 mg 1 tablet daily Bilateral rash on the feet. Currently on clobetasol 0.05% cream and he follows up with dermatology. obesity. Dietary restrictions discussed and advised to lose on average 6 pounds a month. Encouraged physical activity Screening blood work before next appointment. 09/12/2024 Benign prostatic hyperplasia with lower urinary tract symptoms (ICD-10 - N40.1) Mr. Decker is a 79 year old gentleman with DM type II, hypertension, hyperlipidemia, seasonal allergies and BPH here for medicare annual wellness visit. Plan is as follows: Coronary artery disease. He follows up with cardiology and Dr. Rivas and he is on the right medications and is asymptomatic. His lipid panel is within recommended range and he is on statins. Type II diabetes mellitus with nephropathy. He has proteinuria and he is on lisinopril 40 mg daily with GFR of 63. He is on right medications. Last A1c is 5.4 He sees his oracle erp developer. Foot care discussed. check A1c. EKG is normal sinus rhythm at [address] bpm with no acute ST or T wave changes, no bundle branch block, normal intervals. Hypertension. Blood pressure well controlled on current regimen. Advised appropriate hydration. Advised dietary restrictions and regimental exercise. Goal is to lose 5-6 lbs a month. Hyperlipidemia. Last lipid panel within normal limits. Continue current regimen. BPH. He uses straight cath. Stable on Tamsulosin 0.[address] Mejia. Constipation. He takes MiraLAX 1 tablespoon, milk of magnesia 1 tablespoon and Colace 100 mg. He can also continue with psyllium husk and Linzess. Appropriate hydration recommended. He can add natural fiber on her diet, like cucumber. Eye screening. He sees his oracle erp developer regularly. Dental screening. He sees dentist regularly. Colon cancer screening. He had his colonoscopy done in 2021 and is no longer needed considering his age. Immunizations. He is up-to-date on his COVID vaccinations. Flu shot administered in the office today. His healthcare proxy is his Melody and he is full code Screening blood work before next appointment. General health concerns discussed with patient. Scribe services used to formulate this note under HIPAA compliance and under [place] law mandated for scribe services. Patient aware of service. Verbal consent and written consent taken from the patient. Patient understands and verbalizes understanding of the scribes services and all questions answered regarding scribes services. Patient agrees to use of scribes services. 09/12/2024 Encounter for immunization (ICD-10 - Z23) Mr. Decker is a 79 year old gentleman with DM type II, hypertension, hyperlipidemia, seasonal allergies and BPH here for medicare annual wellness visit. Plan is as follows: Coronary artery disease. He follows up with cardiology and Dr. Rvias and he is on the right medications and is asymptomatic. His lipid panel is within recommended range and he is on statins. Type II diabetes mellitus with nephropathy. He has proteinuria and he is on lisinopril 40 mg daily with GFR of 63. He is on right medications. Last A1c is 5.4 He sees his oracle erp developer. Foot care discussed. check A1c. EKG is normal sinus rhythm at 63 bpm with no acute ST or T wave changes, no bundle branch block, normal intervals. Hypertension. Blood pressure well controlled on current regimen. Advised appropriate hydration. Advised dietary restrictions and regimental exercise. Goal is to lose 5-6 lbs a month. Hyperlipidemia. Last lipid panel within normal limits. Continue current regimen. BPH. He uses straight cath. Stable on Tamsulosin 0.[address] Mejia. Constipation. He takes MiraLAX 1 tablespoon, milk of magnesia 1 tablespoon and Colace 100 mg. He can also continue with psyllium husk and Linzess. Appropriate hydration recommended. He can add natural fiber on her diet, like cucumber. Eye screening. He sees his oracle erp developer regularly. Dental screening. He sees dentist regularly. Colon cancer screening. He had his colonoscopy done in 2021 and is no longer needed considering his age. Immunizations. He is up-to-date on his COVID vaccinations. Flu shot administered in the office today. His healthcare proxy is his Meldoy and he is full code Screening blood work before next appointment. General health concerns discussed with patient. Scribe services used to formulate this note under HIPAA compliance and under [place] law mandated for scribe services. Patient aware of service. Verbal consent and written consent taken from the patient. Patient understands and verbalizes understanding of the scribes services and all questions answered regarding scribes services. Patient agrees to use of scribes services. Plan Of Treatment Pending Test Test Name Order Date EMG/NCV ARMS 02/05/2025 Electromyography 02/14/2025 Basic Metabolic Panel [phone] Next Appt Details Provider Name:Jaylyn Vyas, 1 09:30:00 AM, [address] [place] [address], [phone], Insurance Providers Payer Name Payer Address Payer Phone Subscriber Number Group Number Insured Name Patient Relationship to Insured Coverage Start Date Coverage End Date [facility] [address] [place] [id number] [employer] Buzz Self - patient is the insured Medical (General) History Medical History History ICD Code DM type II Hypertension Mixed hyperlipidemia BPH and he uses straight cath. He sees Aggie Mejia Seasonal allergies macular degeneration, left eye, retina s pecialist Surgical History Surgery Date(Month/Year) Tonsillectomy Repair of deviated nasal septum Laparoscopic colectomy 4 years ago Partial thyroidectomy Blocked lacrimal ducts done by Dr. Cantu rtvictoria bilateral iridotomy, Dr. Murdock 2 bilateral cataract surgery
--- OUTSIDE RECORDS SUMMARY | 2025-06-05 11:30 | XMS_ITS | Clinical Summary ---
Author Organization [facility] Address [address] [place] [address] Phone Care Team Providers Care Sales And Marketing Executive Name Role Phone Shaista Olivarez MD Primary Care Provider [phone] Encounters Date Type Department Care Team Description 05/01/2025 6:07 PM EDT - 05/01/2025 11:59 PM EDT Hospital Encounter [facility] MRI [address] [place] [id number] Other intervertebral disc degeneration, lumbar region with discogenic back pain and lower extremity pain Discharge Disposition: Home or Self Care from Last 3 Months Surgical History Surgery Date Site/Laterality Comments VASECTOMY PROCEDURE: SC VASECTOMY UNI/BI SPX W/POSTOP SEMEN EXAMS Medical History Medical History Date Comments HTN (hypertension) DX:HTN (hyper tension) Family History Relation Name Status Comments Father Alive anxiety, htn, d m-type 2 Maternal Grandmother Alive dm Mother Alive thyroid Paternal Grandmother Alive dm Son Alive seizure disorde r,type 1 dm Social History Tobacco Use Types Packs/Day Years Used Date Smoking Tobacco: Never Smokeless Tobacco: Never Alcohol Use Standard Drinks/Week Comments Yes 2.5 (1 standard drink = 0.6 oz p ure alcohol) Sex and Gender Information Value Date Recorded Sex Assigned at Not on file Legal Sex Male 7:15 AM EST Gender Identity Not on file Sexual Orientation Not on file Obstetrics History Plan of Treatment Health Maintenance Due Date Last Done Comments DTaP,Tdap,and Td Vaccines (1 - Tdap) 1963 Pneumococcal Vaccine: 50+ Years (1 of 1 - PCV) 1994 Zoster Vaccines (1 of 2) 1994 Cholesterol Screening (Lipid Panel) 10/31/2022 Depression Screening 10/31/2022 Falls Risk Assessment 10/31/2022 Medicare Annual Wellness Visit 10/31/2022 Social Influencers of Health Screening 10/31/2022 COVID-19 Vaccine ( season) 2025 10/09/2024, 09/01/2023, 09/01/2022, Additional history exists Influenza Vaccine (#1) 2025 , 09/01/2023, 09/01/2022, Additional history exists RSV Immunization Adult Patients Completed 10/09/2024 HIB Vaccines Aged Out No longer eligi ble based on patient's age to complete this topic HPV Vaccines Aged Out No longer eligi ble based on patient's age to complete this topic Hepatitis A Vaccines Aged Out No long er eligible based on patient's age to complete this topic Hepatitis B Vaccines Aged Out No long er eligible based on patient's age to complete this topic IPV Vaccines Aged Out No longer eligi ble based on patient's age to complete this topic MMR Vaccines Aged Out No longer eligi ble based on patient's age to complete this topic Meningococcal ACWY Vaccine Aged Out N o longer eligible based on patient's age to complete this topic Meningococcal B Vaccine Aged Out No l onger eligible based on patient's age to complete this topic RSV Immunization Patients Under 20 months Aged Out No longer eligible based on patient's age to complete this topic Varicella Vaccines Aged Out No longer eligible based on patient's age to complete this topic Procedures Procedure Name Priority Date/Time Associated Diagnosis Comments MR LUMBAR SPINE WO CONTRAST Routine 05/01/2025 7:36 PM EDT Other intervertebral disc degeneration, lumbar region with discogenic back pain and lower extremity pain from Last 3 Months Results * MR Lumbar Spine wo Contrast (05/01/2025 7:36 PM EDT) Anatomical Region Laterality Modality L-spine, Spine Magnetic Resonan ce 05/02/2025 10:1 2 AM EDT Impressions 05/02/2025 10:28 AM EDT Degenerative changes throughout the lumbar spine most Prost at L2-3 where there is moderate to severe spinal canal stenosis and moderate foraminal stenosis bilaterally. -------- FINAL REPORT -------- Dictated By: DAYANA SHELDON Dictated Date: 05/02/2025 10:12 ET Assigned Physician: DAYANA SHELDON Reviewed and Electronically Signed By: DAYANA SHELDON Signed Date: 05/02/2025 10:28 ET Workstation ID: [id number] Transcribed By: Self Edit Transcribed Date: 05/02/2025 10:12 ET Narrative 05/02/2025 10:28 AM EDT PROCEDURE: Lumbar spine MRI INDICATION: Spinal stenosis TECHNIQUE: Multiplanar, multisequence MRI of the Lumbar spine Without contrast. COMPARISON: No priors available. FINDINGS: Fusion across the disc space and posterior elements of L4-5. Mild anterolisthesis at L3-4. S-shaped thoracolumbar curvature with levoconvex lower lumbar component. No fracture or suspicious marrow replacing lesion. Degenerative loss of normal disc height and signal with associated degenerative discogenic endplate changes. Facet arthritis most pronounced at L2-3 and L3-4, right greater than left. Conus medullaris is normal and terminates at L1. No epidural collection or mass is seen within the spinal canal. Bilateral renal cysts. Visualized intra-abdominal and pelvic structures are normal. Findings by level: L1-2: Diffuse disc bulge with small left paracentral protrusion. Bilateral facet arthropathy and ligamentum flavum thickening. Mild spinal canal stenosis with effacement of the left subarticular zone. Mild bilateral foraminal stenosis. L2-3: Bilateral facet arthropathy and ligamentum flavum thickening. Diffuse disc bulge, eccentric to the left. Moderate to severe spinal canal stenosis. Moderate bilateral foraminal stenosis. L3-4: Diffuse disc bulge with endplate spurring. Bilateral facet arthropathy and ligamentum flavum thickening. Moderate spinal canal stenosis. Moderate right and mild left foraminal stenosis. L4-5: Fusion with endplate spurring. Moderate left and mild right foraminal stenosis. No spinal canal stenosis. L5-S1: Diffuse disc bulge with endplate spurring. Mild foraminal stenosis bilaterally. No spinal canal stenosis. Procedure Note Dayana Sheldon MD - 05/02/2025 PROCEDURE: Lumbar spine MRI INDICATION: Spinal stenosis TECHNIQUE: Multiplanar, multisequence MRI of the Lumbar spine Withoutcontrast. COMPARISON: No priors available. FINDINGS: Fusion across the disc space and posterior elements of L4-5. Mildanterolisthesis at L3-4. S-shaped thoracolumbar curvature with levoconvexlower lumbar component. No fracture or suspicious marrow replacing lesion. Degenerative loss of normal disc height and signal with associateddegenerative discogenic endplate changes. Facet arthritis most pronounced at L2-3 and L3-4, right greater thanleft. Conus medullaris is normal and terminates at L1. No epidural collectionor mass is seen within the spinal canal. Bilateral renal cysts. Visualized intra-abdominal and pelvic structuresare normal. Findings by level: L1-2: Diffuse disc bulge with small left paracentral protrusion.Bilateral facet arthropathy and ligamentum flavum thickening. Mild spinalcanal stenosis with effacement of the left subarticular zone. Mildbilateral foraminal stenosis. L2-3: Bilateral facet arthropathy and ligamentum flavum thickening.Diffuse disc bulge, eccentric to the left. Moderate to severe spinalcanal stenosis. Moderate bilateral foraminal stenosis. L3-4: Diffuse disc bulge with endplate spurring. Bilateral facetarthropathy and ligamentum flavum thickening. Moderate spinal canalstenosis. Moderate right and mild left foraminal stenosis. L4-5: Fusion with endplate spurring. Moderate left and mild rightforaminal stenosis. No spinal canal stenosis. L5-S1: Diffuse disc bulge with endplate spurring. Mild foraminal stenosisbilaterally. No spinal canal stenosis. IMPRESSION: Degenerative changes throughout the lumbar spine most Prost at L2-3 wherethere is moderate to severe spinal canal stenosis and moderate foraminalstenosis bilaterally. -------- FINAL REPORT -------- Dictated By: DAYANA SHELDON Dictated Date: 05/02/2025 10:12 ET Assigned Physician: DAYANA SHELDON Reviewed and Electronically Signed By: DAYANA SHELDON Signed Date: 05/02/2025 10:28 ET Workstation ID: [id number] Transcribed By: Self Edit Transcribed Date: 05/02/2025 10:12 ET Padma Dias MD IMG MRI PROCEDURES Final Result from Last 3 Months Insurance [employer] - [place] MEDICARE ADVANTAGE Care Teams Sales And Marketing Executive Relationship Specialty Start Date End Date Shaista Olivarez MD [address] [place] [address] PCP - General 03/09/23
== END 2025-06-05 11:15 | disposition home or self-care (01) ==
LOC: HO.HSM 10:32
PROVIDERS: PCP Hospitalist; Referring Provider Hospitalist; Visit Provider Psychiatry & Neurology Neurology
DX: G62.9 Polyneuropathy, unspecified (principal); G57.10 Meralgia paresthetica, unspecified lower limb; M48.061 Spinal stenosis, lumbar region without neurogenic claudication; R25.1 Tremor, unspecified
CPT/HCPCS: 99214